=== PATIENT | male | born 1995 | race Caucasian/White ===

== ENCOUNTER 2018-05-28 22:41 | Emergency (ER) | payer OTHER ==
[2018-05-29] MEDS: STERILE WATER 1L IRRIG BTL IRR (00:02)
[2018-05-29] MEDS: ONDANSETRON (ODT) 4 MG TAB ODT (00:25)
[2018-05-29] MEDS: HYDROCODONE/APAP (5/325) TAB PO (00:25)
== END 2018-05-29 01:18 | disposition home or self-care (01) ==
LOC: FTE 22:41
DX: S81.811A Laceration without foreign body, right lower leg, initial encounter (principal); W50.0XXA Accidental hit or strike by another person, initial encounter; Y92.9 Unspecified place or not applicable
CPT/HCPCS: 12002; 73590; 99283-25